=== PATIENT | female | born 1990 | race Caucasian/White ===

== ENCOUNTER → 2020-01-28 | Outpatient (CLI) | LOC: LABNPT 15:30 | PROVIDERS: ATTEND Family Medicine | DX: Z01.89 Encounter for other specified special examinations (principal) ==

== ENCOUNTER 2021-02-19 09:05 | Inpatient (IN) | payer OTHER ==
[2021-02-19] VITALS (14 sets, daily range): BP systolic 97–125; BP diastolic 59–77
[2021-02-19] MEDS ORDERED: D5 LR IV SOLUTION 1,000 ML IV ONE (09:21)
[2021-02-19] MEDS ORDERED: OXYTOCIN PRE-MIX DRIP 500 ML IV ONE ×2 (09:21→10:13)
[2021-02-19] MEDS ORDERED: LIDOCAINE 1% INJ 20 ML 20 ML VIAL ONE (09:25)
[2021-02-19] MEDS: OXYTOCIN PRE-MIX DRIP 500 ML IV SCH ×2 (09:51→10:20)
--- NOTE | 2021-02-19 10:09 | OB Labor & Delivery Record ---
Vag Delivery Note Vag Delivery Note Date of Delivery: 02/19/21 Preoperative Diagnosis: Randa Francis is a (30 /Para / ,Gestational Age 39.0 wga here in active labor Postoperative Diagnosis: Same Surgeon: JOSE ALFREDO EVANGELISTA Computer Peripheral Equipment Operator: none Anesthesia: none Delivery Type: @ 0945 Findings: Viable female , apgars 9/9, weight 3700 grams, 8#4 Lacerations: 1st degree perineal laceration Intact placenta with 3 vessel cord. No nuchal cord, body cord or shoulder dystocia Estimated Blood Loss: 120 ml Complications: None Condition: Stable Description of Procedure: The patient is a 30 year old female who presented to [facility] after SROM at home. She was admitted and informed consent was obtained. Her labor course was unremarkable. She progressed to complete dilatation and began to push. She was then set up for delivery. The 's head was delivered atraumatically in the JOVANA position. The shoulders and remainder of the infant's body were then delivered without difficulty. Upon delivery, the head was held below the level of the perineum and the mouth and nares were bulb suctioned. The cord was doubly clamped and cut by FOB after 4 min delay and the was handed off to the pediatric staff. An intact placenta with 3-vessel cord delivered via Lillie and there was found to be minimal bleeding.~ Vigorous fundal massage was performed and the fundus was found to be firm. IV oxytocin was given. Examination of the vagina and perineum revealed a 1st degree perineal laceration repaired in the usual fashion with 3-0 vicryl suture. Following the repair, sponge, instrument and needle counts were correct. Mom and baby were both in stable condition in the labor suite. JOSE ALFREDO EVANGELISTA MD Feb 19, 2021 10:09
--- NOTE | 2021-02-19 10:09 | History & Physical-OB ---
OB - Chief Complaint & HPI Date/Time Date of Admission: Date of Admission: Feb 19, 2021 at 09:50 Date seen by a Provider: Feb 19, 2021 Time Seen by a Provider: 09:50 Chief Complaint/History OB-Reason for Admission/Chief: Onset of Labor Hx : 3 Hx Para: 2 Expected Date of Delivery: Feb 26, 2021 Gestational Age in Weeks: 39 Gestational Age in Days: 0 History of Labs A+, Ab neg HIV/RPR/HepB/C NR GC/chyl neg Rub Imm GBS neg Normal 1 hr GTT Allergies and Home Medications Allergies Coded Allergies: No Known Drug Allergies (Unverified , 02/19/21) Home Medications Ibuprofen 600 Mg Tablet, 600 MG PO Q6HR PRN for CRAMPS Prescribed by: DESMOND KELLY on 02/20/21 0643 Patient Home Medication List Home Medication List Reviewed: Yes OB - History Hx of Present Care: Yes Ultrasounds: Normal mid trimester US Obstetrical Complications: None Medical Complications: None Information Induced Hypertension: No Maternal Gestational Diabetes: No Hemorrhage: No Obstetrical History Hx : 3 Hx Para: 2 Hx # Term Pregnancies: 2 Number of Living Children: 2 Patient Past Medical History N/A Social History/Family History Alcohol Use: Denies Use Smoking Cessation: Never smoker Immunizations Tetanus Booster (TDap): Less than 5yrs Rubella: immune RPR/VDRL: Negative GBS Status: Negative HBsAG: Negative OB - Admission Exam Physical Exam HEENT: NCAT Heart: Rhythm Normal Lungs: Clear Abdomen: Gravid Cervical Dilatation: 10cm Effacement: 100% Station: +2 Membranes: Ruptured Amniotic Fluid: Clear Heart Rate: 140's Accelerations: Accelerations Present Decelerations: Variable Decelerations Contractions on Admission: < 5 Minutes Apart OB - Assessment/Plan/Diagnosis Assessment Assessment: active labor, rupture of membranes Admission Dx Third Trimester 39 week gestation Spontaneous Rupture of membranes Admission Status: Inpatient Order (span 2 midnights) Reason for Inpatient Admission: Active Labor Plan Plan: Expectant Management Other Plan 30 yo @ 39.0 wga here for SROM and Active Labor Plan - Patient to floor complete - Expectant management - GBS neg Copy Copies To 1: JOSE ALFREDO EVANGELISTA MD, HOLLY R MD Feb 19, 2021 10:09
[2021-02-19] MEDS ORDERED: WITCH HAZEL(TUCKS) 40 EA JAR TOP PRN (10:15)
[2021-02-19] MEDS ORDERED: BENZOCAINE/MENTHOL (DERMOPLAST) 56 ML CAN TP PRN (10:15)
[2021-02-19 10:31] LABS: BASOPHILS # (AUTO) 0.1 10^3/uL (0.0-0.1); BASOPHILS % (AUTO) 0 % (0-10); EOSINOPHILS % (AUTO) 0 % (0-10); HEMATOCRIT 37 % (35-52); HEMOGLOBIN 11.6 g/dL (11.5-16.0); LYMPHOCYTES # (AUTO) 1.6 10^3/uL (1.0-4.0); LYMPHOCYTES % (AUTO) 10 % (12-44); MEAN CORPUSCULAR HEMOGLOBIN 29 pg (25-34); MEAN CORPUSCULAR HGB CONC 31 g/dL (32-36); MEAN CORPUSCULAR VOLUME 92 fL (80-99); MEAN PLATELET VOLUME 11.2 fL (9.0-12.2); MONOCYTES # (AUTO) 1.2 10^3/uL (0.0-1.0); MONOCYTES % (AUTO) 7 % (0-12); NEUTROPHILS # (AUTO) 13.1 10^3/uL (1.8-7.8); NEUTROPHILS % (AUTO) 82 % (42-75); PLATELET COUNT 260 10^3/uL (130-400)
[2021-02-19] MEDS: IBUPROFEN 600 MG (MOTRIN) TAB PO SCH ×2 (12:20→18:13)
[2021-02-19] MEDS: ACETAMINOPHEN 500 MG TAB (TYLENOL) PO SCH ×2 (12:20→18:13)
[2021-02-19] MEDS ORDERED: CATHETER FLUSH 10 ML SYR IV SCH (14:00)
[2021-02-19] MEDS: DOCUSATE SODIUM 100 MG (COLACE) CAP PO SCH (20:17)
[2021-02-20 00:11] VITALS: BP 107/59
[2021-02-20] MEDS: IBUPROFEN 600 MG (MOTRIN) TAB PO SCH ×2 (00:11→09:23)
[2021-02-20 04:16] VITALS: BP 102/59
[2021-02-20] MEDS: ACETAMINOPHEN 500 MG TAB (TYLENOL) PO SCH (04:16)
[2021-02-20 06:42] LABS: BASOPHILS # (AUTO) 0.1 10^3/uL (0.0-0.1); BASOPHILS % (AUTO) 1 % (0-10); EOSINOPHILS # (AUTO) 0.1 10^3/uL (0.0-0.3); EOSINOPHILS % (AUTO) 1 % (0-10); HEMATOCRIT 32 % (35-52); HEMOGLOBIN 9.6 g/dL (11.5-16.0); LYMPHOCYTES # (AUTO) 1.4 10^3/uL (1.0-4.0); LYMPHOCYTES % (AUTO) 13 % (12-44); MEAN CORPUSCULAR HEMOGLOBIN 28 pg (25-34); MEAN CORPUSCULAR HGB CONC 31 g/dL (32-36); MEAN CORPUSCULAR VOLUME 92 fL (80-99); MEAN PLATELET VOLUME 10.7 fL (9.0-12.2); MONOCYTES # (AUTO) 0.9 10^3/uL (0.0-1.0); MONOCYTES % (AUTO) 8 % (0-12); NEUTROPHILS # (AUTO) 8.1 10^3/uL (1.8-7.8); NEUTROPHILS % (AUTO) 77 % (42-75); PLATELET COUNT 196 10^3/uL (130-400); WHITE BLOOD COUNT 10.6 10^3/uL (4.3-11.0)
--- NOTE | 2021-02-20 06:42 | Short Stay Summary ---
Discharge Summary Hospital Course Problems/Dx: (1) Status post vaginal delivery Final Diagnosis: see problem list Hospital Course Date of Admission: Feb 19, 2021 at 09:50 Admission Diagnosis : 1. at 39wk with spontanous onset of labor Family Physician/Provider: Chante Andino MD Date of Discharge: 02/20/21 Discharge Diagnosis: 1. s/p Hospital Course: Routine course. Labs and Pending Lab Test: Laboratory Tests 02/19/21 10:20: White Blood Count 16.0H, Red Blood Count 4.05, Hemoglobin 11.6, Hematocrit 37, Mean Corpuscular Volume 92, Mean Corpuscular Hemoglobin 29, Mean Corpuscular Hemoglobin Concent 31L, Red Cell Distribution Width 12.8, Platelet Count 260, Mean Platelet Volume 11.2, Immature Granulocyte % (Auto) 1, Neutrophils (%) (Auto) 82H, Lymphocytes (%) (Auto) 10L, Monocytes (%) (Auto) 7, Eosinophils (%) (Auto) 0, Basophils (%) (Auto) 0, Neutrophils # (Auto) 13.1H, Lymphocytes # (Auto) 1.6, Monocytes # (Auto) 1.2H, Eosinophils # (Auto) 0.0, Basophils # (Auto) 0.1, Immature Granulocyte # (Auto) 0.1 02/20/21 06:30: White Blood Count [Pending], Red Blood Count [Pending], Hemoglobin [Pending], Hematocrit [Pending], Mean Corpuscular Volume [Pending], Mean Corpuscular Hemogl obin [Pending], Mean Corpuscular Hemoglobin Concent [Pending], Red Cell Distribution Width [Pending], Platelet Count [Pending], Mean Platelet Volume [Pending], Neutrophils (%) (Auto) [Pending], Lymphocytes (%) (Auto) [Pending], Monocytes (%) (Auto) [Pending], Eosinophils (%) (Auto) [Pending], Basophils (%) (Auto) [Pending], Neutrophils # (Auto) [Pending], Lymphocytes # (Auto) [Pend ing], Monocytes # (Auto) [Pending], Eosinophils # (Auto) [Pending], Basophils # (Auto) [Pending] Assessment/Pt Instructions Follow-up with Dr. Andino in [place] in 6 weeks. Discharge Physical Examination General Appearance: Alert, Oriented X3, Cooperative Psych/Mental Status: Mood NL Allergies: Coded Allergies: No Known Drug Allergies (Unverified , 02/19/21) Discharge Summary Date of Admission Feb 19, 2021 at 09:50 Date of Discharge DESMOND KELLY DO Feb 20, 2021 06:42
[2021-02-20] MEDS ORDERED: IBUP-844 PO (06:43)
[2021-02-20 09:21] VITALS: BP 100/63
[2021-02-20] MEDS: DOCUSATE SODIUM 100 MG (COLACE) CAP PO SCH (09:23)
== END 2021-02-20 15:20 | disposition home or self-care (01) | DRG 807 ==
LOC: WSo 09:05 → LDRP 09:50 → WS 14:55 → LDRP 16:00
PROVIDERS: ADMIT Family Medicine; ATTEND Family Medicine
PROC: 10E0XZZ Delivery of Products of Conception, External Approach (ICD-10-PCS; principal; 2021-02-19)
PROC: 0HQ9XZZ Repair Perineum Skin, External Approach (ICD-10-PCS; 2021-02-19)
DX: O70.0 First degree perineal laceration during delivery (principal); Z37.0 Single live birth; Z3A.39 39 weeks gestation of pregnancy; Z79.1 Long term (current) use of non-steroidal anti-inflammatories (NSAID)
CPT/HCPCS: 36415; 85025; 86850; 86900; 86901; 99212